=== PATIENT | male | born 1970 | race Asian ===

== ENCOUNTER 2021-05-16 14:11 | Emergency (ER) | payer OTHER ==
[~2021-05-16] VITALS: Ht 165 cm; Wt 84.8 kg
[2021-05-16 14:21] VITALS: BP 120/93
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
[2021-05-16] MEDS ORDERED: IBUPROFEN 600 MG (MOTRIN) TAB PO ONE (14:45)
== END 2021-05-16 14:55 | disposition home or self-care (01) ==
LOC: ER FS 14:13
DX: S80.12XA Contusion of left lower leg, initial encounter (principal); S80.11XA Contusion of right lower leg, initial encounter; S50.12XA Contusion of left forearm, initial encounter; Z72.0 Tobacco use; V89.2XXA Person injured in unspecified motor-vehicle accident, traffic, initial encounter
CPT/HCPCS: 99283